=== PATIENT | female | born 1960 | race African-American/Black ===

== ENCOUNTER → 2017-12-03 | Day surgery (SDC) | payer BC ==
--- NOTE | 2017-12-03 11:06 | OP ---
DATE OF OPERATION: 12/03/2017 PREOPERATIVE DIAGNOSIS: Left breast mass, 2 o'clock, 2 cm from the nipple. POSTOPERATIVE DIAGNOSIS: Left breast mass, 2 o'clock, 2 cm from the nipple. PROCEDURE: Left ultrasound-guided core biopsy with clip placement. ANESTHESIA: Local. ATTENDING SURGEON: Miguel Cohen MD ESTIMATED BLOOD LOSS: Minimal. COMPLICATIONS: None. DESCRIPTION OF PROCEDURE: Patient was made aware of the risks and benefits of the procedure and consented. She was placed in the supine position. Under sterile conditions with 1% Lidocaine for local anesthesia, a small ileana was made in the skin. Using a 13-guage suction biopsy device through a superolateral approach under ultrasound guidance, multiple cores were obtained and submitted to Pathology. Likewise, under ultrasound guidance, a bow tie clip was placed into the biopsy region. Well tolerated by patient. Steri-Strip and sterile bandage were applied. Post-procedure mammogram was obtained, as well. Will contact her with the results. MIGUEL COHEN M.D. [id number]
--- NOTE | 2017-12-06 14:30 | PATH ---
Surgical Pathology Report Patient Name: KOFI LANDRY [facility]. Rec. #: [id number] /Age/Gender: 1960 (Age: 57) / F Account: [id number] Location: Taken: 12/03/2017 Received: 12/03/2017 Reported: 12/06/2017 Physicians: Miguel Cohen M.D. Specimen(s) Received LEFT BREAST CORE BIOPSY 200 CM FN Clinical History Palpable mass Ultrasound findings: Highly suspicious/malignant Final Diagnosis LEFT BREAST 2:00, 2CM FN, CORE BIOPSY: INVASIVE LOBULAR CARCINOMA WITH PLEOMORPHIC FEATURES, MODERATELY DIFFERENTIATED. THE INVASIVE CARCINOMA MEASURES AT LEAST 1.2CM IN THIS SPECIMEN. LOBULAR CARCINOMA IN SITU PRESENT. 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 NO DEFINITIVE LYMPHOVASCULAR INVASION. Biomarker Studies: Results of Estrogen Receptor (ER), Progesterone Receptor (RI), Her2 (IHC) & Ki-67 performed on this specimen at [place], [place] ([id number]) interpreted at [facility] are as follows: ER (clone [id number] mouse monoclonal antibody by [employer]): 98% nuclear staining with strong intensity (Positive). RI (clone16 mouse monoclonal antibody by [employer]): 90% nuclear staining with strong intensity (Positive). Her2 IHC (EP3 from [employer], formerly known as [id number], using [employer] Polymer Refine detection kit): Negative (0) Ki-67: <10% (low proliferative index) Positive and negative controls (internal if applicable) show appropriate results. Formalin fixation and cold ischemic times are within current ASCO/CAP recommendations for ER, RI and Her2 testing. Comment: Immunohistochemistry study performed [place], [place] ([id number]) interpreted at [facility] showing the invasive carcinoma and LCIS component are negative for E-Cadherin, with diffuse strong cytoplasmic pattern p120 catenin staining. This immunostain pattern supports the diagnosis of a lobular carcinoma. Intradepartmental case reviewed with consensus on diagnosis. Electronically Signed Mireya Harper M.D. Gross Description Received in formalin labeled "left breast biopsy 2:00, 2 CMFN," is a 2.1 x 2.0 x 0.3 cm aggregate of multiple marshall-yellow, irregular to cylindrical portions of fibroadipose tissue admixed with blood clot. The formalin is filtered and the specimen is entirely submitted in one cassette. Time to formalin fixation: Less than one minute Total formalin fixation time: Approximately 10 hours. 12/03/2017
== END | disposition home or self-care (01) ==
LOC: FRADUS-SUR 07:53
PROVIDERS: ATTEND Surgery Surgical Oncology
PROC: 0HBU3ZX Excision of Left Breast, Percutaneous Approach, Diagnostic (ICD-10-PCS; principal; 2017-12-03)
DX: C50.912 Malignant neoplasm of unspecified site of left female breast (principal); Z17.0 Estrogen receptor positive status [ER+]; N63.21 Unspecified lump in the left breast, upper outer quadrant
CPT/HCPCS: 19083; 77065-TC; 88305-TC